=== PATIENT | male | born 1960 | race Caucasian/White ===

== ENCOUNTER → 2019-04-13 16:00 | Outpatient (CLI) | payer OTHER, SELFPAY ==
[2019-04-13 17:56] LABS: Alanine Aminotransferase 34 IU/L (21-72); Albumin 4.6 g/dL (3.5-5.0); Albumin Globulin Ratio 1.4 (1.0-2.8); Alkaline Phosphatase 93 U/L (38-126); Aspartate Aminotransferase 22 IU/L (17-59); Bilirubin Total 1.1 mg/dL (0.2-1.3); Blood Urea Nitrogen 22 mg/dL (9-20); Calcium 10.1 mg/dL (8.4-10.2); Carbon Dioxide 26 mmol/L (22-32); Chloride 101 mmol/L (98-107); Cholesterol 158 mg/dL (140-199); Estimated Glomerular Filt Rate > 60.0 mL/min (>60); Globulin 3.2 g/dL (1.7-4.1); Glucose 132 mg/dL (80-110); HDL Cholesterol 46 mg/dL (40-60); HEMOLYSIS < 15 (0-50); LDL Cholesterol Calculated 65 mg/dL (<100); Potassium 4.4 mmol/L (3.4-5.1); Sodium 138 mmol/L (137-145); Total Protein 7.8 g/dL (6.3-8.2); Triglycerides 237 mg/dL (35-150)
== END ==
PROVIDERS: Visit Provider Internal Medicine Cardiovascular Disease
DX: E78.5 Hyperlipidemia, unspecified (principal)
CPT/HCPCS: 36415; 80053; 80061

== ENCOUNTER → 2020-02-05 15:42 | Outpatient (CLI) | payer OTHER, SELFPAY ==
[2020-02-06 08:49] LABS: COVID19 Sendout Not Detected (Not Detect)
== END ==
PROVIDERS: PCP Internal Medicine; Visit Provider Physician Assistant
DX: Z11.59 Encounter for screening for other viral diseases (principal)
CPT/HCPCS: 87635

== ENCOUNTER 2020-02-08 06:46 | Day surgery (SDC) | payer OTHER, SELFPAY ==
--- NOTE | 2020-02-08 | PATH_ITS ---
[facility] Accession Number: [id number] . 01 Material submitted: . PART A: colon - TRANSVERSE COLON POLYP PART B: colon - COLON POLYP AT 110 CM PART C: colon - COLON POLYP AT 20 CM . 02 Diagnosis: A. Transverse Colon, Polyp, Biopsy: Tubular adenoma. . B. Colon, Polyp at 110 cm, Biopsy: Tubular adenoma. . C. Colon, Polyp at 20 cm, Biopsy: Hyperplastic polyp. MR 02/09/2020 1015 Local . 02 Electronically signed: . Keila Cardenas MD, Pathologist NPI- [id number] . 01 Gross description: . Part A: TRANSVERSE COLON POLYP: Received in formalin are 4 fragment(s) of burden, soft tissue measuring 0.1 x 0.1 x 0.1 cm to 0.3 x 0.3 x 0.2 cm submitted entirely in 1 cassette(s) Part B: COLON POLYP AT 110 CM: Received in formalin is 1 fragment of buredn soft tissue measuring 1.0 x 0.7 x 0.6 cm. Specimen is sectioned and submitted in its entirety in 1 cassette. Part C: COLON POLYP AT 20 CM: Received in formalin are 2 fragment(s) of burden, soft tissue measuring 0.2 x 0.2 x 0.2 cm to 0.3 x 0.2 x 0.2 cm submitted entirely in 1 cassette(s) /NICHOLAS 02/08/20202037 Local . 02 Pathologist provided ICD-10: D12.6, D12.3 . 02 CPT . 255177, 812274, 301447 Performed at: [address], [place], [place] [id number] MD Maverick Contreras MD Phone: [phone] Performed at: 02 [facility] [address] [place] [id number] MD Keila Cardenas MD Phone: [phone]
[2020-02-08 07:18] VITALS: BP 119/72; PULSE 82; RESP 16; TEMP 36.1; O2SAT 98; BMI 32.3
[2020-02-08] MEDS: LACTATED RINGERS 1,000 ML 42 ML IV (07:29)
--- NOTE | 2020-02-08 07:42 | PM.PREOP ---
Pre-operative Note COVID-19 COVID-19 status: Negative Result date/Date tested (Pos, Neg/Pending): 02/05/20 Interval Note History & Physical reviewed/Exam performed by Physician: Yes Changes to H&P: No ASA Class (for procedural sedation): II
[2020-02-08] MEDS: fentaNYL 250 MCG/5 ML INJ IV (07:52)
[2020-02-08] MEDS: MIDAZOLAM 5 MG/5 ML VIAL IV (07:52)
--- NOTE | 2020-02-08 08:22 | P.OP.ENDO_ITS ---
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 Digital exam was unremarkable. His prostate is normal.. The scope was inserted and advanced through the rectum into the sigmoid, descending, transverse, and ascending colon. The cecum was reached identified by the ileocecal valve and the appendiceal opening. The scope was gradually brought out. Polyps were found at the proximal transverse colon, at 110 cm in the transverse colon, and at 20 cm from the anal verge. The largest of these wa s the lesion at 110 cm which was flat and snared in pieces. It appeared to be completely removed.. The scope ultimately was retroflexed in the rectum. The appearance was normal. The scope was removed and the patient tolerated the procedure well. Prep was adequate once it was irrigated Scope withdrawal time: 10 minutes(21 total) Sedation minutes: 34 Findings: polyp Specimen(s): other (Polyps) Complications: none Post-procedure Recommendations: Colonscopy in 3 years Follow up: as needed Disposition: PACU
[2020-02-08 08:25] VITALS: BP 100/71; BP 104/74; PULSE 73; PULSE 81; RESP 16; RESP 18; TEMP 36.4; O2SAT 95; O2SAT 96
[2020-02-08 08:37] VITALS: BP 107/77; PULSE 82; RESP 13; TEMP 36.2; O2SAT 95
[2020-02-08 08:41] VITALS: BP 117/79; PULSE 78; RESP 19; O2SAT 96
== END 2020-02-08 09:10 | disposition home or self-care (01) ==
PROVIDERS: PCP Internal Medicine; Referring Provider Specialist; Visit Provider Specialist
PROC: 0DJD8ZZ Inspection of Lower Intestinal Tract, Via Natural or Artificial Opening Endoscopic (ICD-10-PCS; CPT 45378; principal; 2020-02-08 07:45)
DX: D12.3 Benign neoplasm of transverse colon (principal); D12.6 Benign neoplasm of colon, unspecified; E78.00 Pure hypercholesterolemia, unspecified; E11.9 Type 2 diabetes mellitus without complications; E03.9 Hypothyroidism, unspecified; I25.10 Atherosclerotic heart disease of native coronary artery without angina pectoris; I25.2 Old myocardial infarction
CPT/HCPCS: 45385; 45380; 99152; 99153; J2250; J3010

== ENCOUNTER → 2022-02-25 15:31 | Outpatient (CLI) | payer OTHER, SELFPAY ==
--- NOTE | 2022-02-25 | DI.MRI.S_ITS ---
PROCEDURE: MR CERVICAL SPINE WO CON INDICATIONS: Cervicalgia TECHNIQUE: Noncontrast sagittal T1 spin echo and T2 fast spin echo, sagittal STIR, foraminal oblique sagittal T2 fast spin echo, and axial gradient echo or T2 fast spin echo through the cervical spine. COMPARISON: None. FINDINGS: Image quality: Excellent. Alignment and Curvature: There is normal bony alignment. Bone Marrow: Marrow demonstrates normal overall signal. Spinal Cord: Visualized spinal cord has normal size and signal. No cerebellar tonsillar herniation. Paraspinous Soft Tissues: No paravertebral masses. Prevertebral soft tissues are normal in thickness. C2-C3: No significant disc bulge. The foramina and central canal are patent. C3-C4: Diffuse disc bulge with no significant foraminal or central canal stenosis. C4-C5: No significant disc bulge. The foramina and central canal are patent. C5-C6: Disc space narrowing with a diffuse disc bulge and bilateral disc osteophytes and uncovertebral hypertrophy cause severe bilateral foraminal stenosis. The central canal has mild stenosis. C6-C7: No significant disc bulge. The foramina and central canal are patent. C7-T1: No significant disc bulge. The foramina and central canal are patent. IMPRESSION: 1. Degenerative disc disease at C5-6 as above causing severe bilateral foraminal stenosis and mild central canal stenosis. 2. No abnormal cord signal. Dictated by: Bobby Benjamin M.D. on 02/25/2022 at 16:58 Approved by: Bobby Benjamin M.D. on 02/25/2022 at 17:01
== END ==
PROVIDERS: PCP Student in an Organized Health Care Education/Training Program; Referring Provider Student in an Organized Health Care Education/Training Program; Visit Provider Student in an Organized Health Care Education/Training Program
DX: M50.322 Other cervical disc degeneration at C5-C6 level (principal); M48.02 Spinal stenosis, cervical region
CPT/HCPCS: 72141

== ENCOUNTER → 2022-12-02 12:12 | Outpatient (CLI) | payer OTHER, SELFPAY ==
--- NOTE | 2022-12-02 | DI.MRI.S_ITS ---
PROCEDURE: MR SHOULDER RT WO CON INDICATIONS: Impingement syndrome of right shoulder TECHNIQUE: Noncontrast oblique coronal T2 fast spin echo with fat saturation, oblique sagittal T1 spin echo and T2 fast spin echo with fat saturation, axial T1 spin echo and T2 fast spin echo with fat saturation through the shoulder. COMPARISON: None. FINDINGS: Image quality: Excellent. Rotator cuff: Low to moderate grade articular surface partial-thickness tear involving distal supraspinatus at its insertion on the humeral head is seen with focal full-thickness perforation involving most anterior fibers of distal supraspinatus without significant medial retraction of torn tendon fibers. Distal infraspinatus tendinosis and low-grade articular surface partial-thickness tear is seen extending to musculotendinous junction. Mild edema involving inferior portion of infraspinatus muscle near musculotendinous junction is also seen suggestive of muscle strain/partial-thickness tear. Low-grade partial-thickness tear involving superior fibers of distal subscapularis is also seen. Sagittal images demonstrate mild supraspinatus muscle atrophy. Bones and bursae: No bone marrow contusions or fractures. Mild to moderate acromioclavicular joint osteoarthritic changes are seen with joint space narrowing, subchondral sclerosis and downward osteophyte formation depressing the musculotendinous junction of supraspinatus. Small to moderate amount of subacromial subdeltoid bursal fluid is seen. Capsule and soft tissues: There is signal abnormality and contour irregularity involving superior anterior labrum at 12 to 2 o'clock position suggestive of superior anterior labral tear. The long head of the biceps tendon demonstrates normal location and morphology. The rotator interval appears normal, without fibrosis. The coracohumeral ligament is normal in thickness. IMPRESSION: 1. Low to moderate grade articular surface partial-thickness tear involving distal supraspinatus extending to musculotendinous junction with focal full-thickness perforation involving most anterior fibers of distal supraspinatus. No significant retraction of torn tendon fibers. Mild supraspinatus muscle atrophy. 2. Low-grade articular surface partial-thickness tear involving distal supraspinatus extending to musculotendinous junction with suggestion of strain/ partial-thickness tear involving inferior portion of infraspinatus muscle near musculotendinous junction. Low-grade partial-thickness tear involving superior fibers of distal subscapularis. 3. Mild to moderate acromioclavicular joint osteoarthritis. No fracture or dislocation. Small to moderate amount of joint effusion and subacromial subdeltoid bursal fluid. 4. Suggestion of superior anterior labral tear at 12 to 2 o'clock position. Dictated by: Jimy Dave M.D. on 12/02/2022 at 16:17 Approved by: Jimy Dave M.D. on 12/02/2022 at 16:22
== END ==
PROVIDERS: PCP Student in an Organized Health Care Education/Training Program; Referring Provider Orthopaedic Surgery; Visit Provider Orthopaedic Surgery
DX: M75.111 Incomplete rotator cuff tear or rupture of right shoulder, not specified as traumatic (principal); M19.011 Primary osteoarthritis, right shoulder; M75.41 Impingement syndrome of right shoulder
CPT/HCPCS: 73221

== ENCOUNTER → 2024-01-27 13:11 | Outpatient (CLI) | payer MEDICARE, OTHER, SELFPAY ==
--- NOTE | 2024-01-27 13:15 | DI.MG.S_ITS ---
MALE BILATERAL DIGITAL DIAGNOSTIC MAMMOGRAM 3D/2D: 01/27/2024 CLINICAL: Palpable left breast lump. No prior exams were available for comparison. Primarily left sided moderate retroareolar gynecomastia. No other significant masses, calcifications, or other findings are seen in either breast. IMPRESSION: BENIGN There is no mammographic evidence of malignancy. Primarily left sided moderate retroareolar gynecomastia. Clinical evaluation is recommended for possible etiologies. Clinical followup also recommended. If there are clinically concerning changes, reimaging with diagnostic mammogram and possible ultrasound may be obtained. This exam was interpreted at Station ID: [id number]. NOTE: For mammograms, a report in lay terms will be sent to the patient. Approximately 15% of breast malignancies will not be visualized mammographically. In the management of a palpable breast mass, a negative mammogram must not discourage biopsy of a clinically suspicious lesion. Electronically Signed By: Dash Levine M.D. lc/:01/27/2024 14:13:25 copy to: BARBARA CANTU letter sent: Clinical Evaluation ACR BI-RADS Category 2: Benign Finding(s) 3342F
== END ==
PROVIDERS: PCP Physician Assistant Medical; Referring Provider Physician Assistant Medical; Visit Provider Physician Assistant Medical
DX: N63.20 Unspecified lump in the left breast, unspecified quadrant (principal); N62 Hypertrophy of breast
CPT/HCPCS: 77066; G0279